=== PATIENT | male | born 2000 | race African-American/Black ===

== ENCOUNTER 2021-11-29 17:02 | Emergency (ER) | payer OTHER ==
[~2021-11-29] VITALS: Ht 170.2 cm; Wt 53.1 kg
[2021-11-29] MEDS ORDERED: VYVANSE20 MG PO (17:26)
[2021-11-29] MEDS ORDERED: PROZAC10 M1 PO (17:27)
[2021-11-29 17:54] LABS: ABSOLUTE EOSINOPHILS 0.1 thou/uL (0.0-0.7); ABSOLUTE LYMPHOCYTES 2.3 thou/uL (0.8-5.3); ABSOLUTE MONOCYTES 0.6 thou/uL (0.0-1.2); ABSOLUTE NEUTROPHILS 3.6 thou/uL (1.6-8.1); BASOPHILS 0.7 %; HEMOGLOBIN 15.1 gm/dL (14.0-18.0); LYMPHOCYTES 34.5 %; MCH 29.7 pg (26.0-34.0); MCHC 33.6 g/dL (28.0-37.0); MCV 88.3 fL (80.0-100.0); MONOCYTES 8.8 %; MPV 9.2 fl. (7.2-11.1); NUCLEATED RBCS 0 /100WBC; PLATELET COUNT* 191 thou/uL (150-400); RDW-CV 13.2 % (10.5-14.5); WBC 6.6 thou/uL (4.0-11.0)
[2021-11-29 18:10] LABS: CALCIUM 8.7 mg/dL (8.5-10.1); CREATININE 0.8 mg/dL (0.6-1.3); POTASSIUM 3.7 mmol/L (3.5-5.1)
[2021-11-29 18:15] LABS: ALBUMIN 4.2 g/dL (3.4-5.0); TOTAL BILIRUBIN 0.7 mg/dL (<0.1-1.0); TOTAL PROTEIN 7.9 g/dL (6.4-8.2)
[2021-11-29] MEDS ORDERED: ZOFRAN ODT4 MG PO (18:56)
[2021-11-29 19:05] VITALS: BP 118/70
== END 2021-11-29 19:06 | disposition home or self-care (01) ==
LOC: M.ERS 17:02
PROVIDERS: Student in an Organized Health Care Education/Training Program
DX: S09.90XA Unspecified injury of head, initial encounter (principal); F41.9 Anxiety disorder, unspecified; Z79.899 Other long term (current) drug therapy; Z88.1 Allergy status to other antibiotic agents; X58.XXXA Exposure to other specified factors, initial encounter; Y93.9 Activity, unspecified; Y92.89 Other specified places as the place of occurrence of the external cause; Y99.8 Other external cause status